=== PATIENT | female | born 1985 | race Caucasian/White ===

== ENCOUNTER 2018-04-03 11:17 | Emergency (ER) | payer MEDICAID ==
[~2018-04-03] VITALS: Ht 162.6 cm; Wt 68.0 kg
[2018-04-03 11:21] VITALS: BP 136/77
[2018-04-03 13:13] LABS: BASOPHILS % (AUTO) 0.9 % (0.0-2.0); EOSINOPHILS % (AUTO) 0.9 % (0.0-3.0); HEMATOCRIT 42.7 % (37.0-47.0); HEMOGLOBIN 14.5 G/DL (12.0-16.0); LYMPHOCYTES % (AUTO) 30.3 % (20.0-45.0); MEAN CORPUSCULAR VOLUME 88 FL (80-99); MONOCYTES % (AUTO) 11.1 % (1.0-10.0); NEUTROPHILS % (AUTO) 56.8 % (45.0-75.0); PLATELET COUNT 283 K/UL (150-450); RED BLOOD COUNT 4.86 M/UL (4.20-5.40); RED CELL DISTRIBUTION WIDTH 12.1 % (11.6-14.8); WHITE BLOOD COUNT 7.4 K/UL (4.8-10.8)
[2018-04-03 13:34] LABS: ANION GAP 10 mmol/L (5-15); BLOOD UREA NITROGEN 11 mg/dL (7-18); CARBON DIOXIDE 27 MMOL/L (21-32); CHLORIDE 103 MMOL/L (98-107); CREATININE 0.8 MG/DL (0.55-1.30); POTASSIUM 3.3 MMOL/L (3.5-5.1); SODIUM 140 MMOL/L (136-145)
[2018-04-03 13:39] LABS: ALANINE AMINOTRANSFERASE 68 U/L (12-78); ALBUMIN 3.8 G/DL (3.4-5.0); ALBUMIN/GLOBULIN RATIO 1.1 (1.0-2.7); ALKALINE PHOSPHATASE 109 U/L (46-116); ASPARTATE AMINO TRANSFERASE 38 U/L (15-37); BILIRUBIN,TOTAL 0.6 MG/DL (0.2-1.0)
--- NOTE | 2018-04-03 14:20 | Emergency Room Report ---
History of Present Illness General Chief Complaint: General Complaint Source: Patient Present Illness HPI This patient is brought in by EMS. The patient was acting bizarrely outside of a [place] stadium. [place] [employer] was called to have her removed and she continued to act bizarrely and nonsensical with the [place] police. She is not in custody but they were concerned about her behavior. The patient herself has no specific complaints. She has a history of methamphetamine abuse. Allergies: Coded Allergies: No Known Allergies (Unverified , 04/03/18) Patient History Past Medical History: see triage record, unable to obtain Social History: Reports: drug use Last Menstrual Period: Now Reviewed Nursing Documentation: PMH: Agreed; PSxH: Agreed Nursing Documentation-PMH Past Medical History: No History, Except For Review of Systems All Other Systems: negative except mentioned in HPI Physical Exam Vital Signs Date Time Temp Pulse Resp B/P (MAP) Pulse Ox O2 Delivery O2 Flow Rate FiO2 04/03/18 11:05 65 18 136/77 97 Room Air Sp02 EP Interpretation: reviewed, normal General Appearance: no apparent distress, alert, GCS 15, non-toxic Head: normocephalic, atraumatic Eyes: bilateral eye normal inspection, bilateral eye PERRL ENT: hearing grossly normal, normal pharynx, no angioedema, normal voice Neck: full range of motion, supple/symm/no masses Respiratory: chest non-tender, lungs clear, normal breath sounds, no respiratory distress, no retraction, no accessory muscle use, speaking full sentences Cardiovascular #1: regular rate, rhythm, no edema Gastrointestinal: normal bowel sounds, non tender, soft, non-distended, no guarding, no rebound Rectal: deferred Musculoskeletal: back normal, normal range of motion, non-tender Neurologic: alert, responsive, motor strength/tone normal, sensory intact, grossly normal Psychiatric: no suicidal/homicidal ideation, other - Flight of speech, unable to articulate sensical sentence. Skin: normal color, no rash, warm/dry, well hydrated Medical Decision Making Diagnostic Impression: Primary Impression: Drug intoxication with delirium ER Course This patient has an examination consistent with drug intoxication. Likely this patient used methamphetamine. The patient's laboratory workup was noncontributory. There is no evidence of trauma or injury on physical examination of this patient. The patient was allowed to sober up in the emergency department and was able to ambulate and articulate desire to go home. The patient was clinically sober at the time of discharge. No acute emergency medical condition is identified. The patient was educated on the dangers of drug intoxication and abuse. The patient was given a list of the local rehabilitation clinics. Laboratory Tests Test 04/03/18 12:04 White Blood Count 7.4 K/UL (4.8-10.8) Red Blood Count 4.86 M/UL (4.20-5.40) Hemoglobin 14.5 G/DL (12.0-16.0) Hematocrit 42.7 % (37.0-47.0) Mean Corpuscular Volume 88 FL (80-99) Mean Corpuscular Hemoglobin 29.8 PG (27.0-31.0) Mean Corpuscular Hemoglobin Concent 33.9 G/DL (32.0-36.0) Red Cell Distribution Width 12.1 % (11.6-14.8) Platelet Count 283 K/UL (150-450) Mean Platelet Volume 6.2 FL (6.5-10.1) L Neutrophils (%) (Auto) 56.8 % (45.0-75.0) Lymphocytes (%) (Auto) 30.3 % (20.0-45.0) Monocytes (%) (Auto) 11.1 % (1.0-10.0) H Eosinophils (%) (Auto) 0.9 % (0.0-3.0) Basophils (%) (Auto) 0.9 % (0.0-2.0) Sodium Level 140 MMOL/L (136-145) Potassium Level 3.3 MMOL/L (3.5-5.1) L Chloride Level 103 MMOL/L (98-107) Carbon Dioxide Level 27 MMOL/L (21-32) Anion Gap 10 mmol/L (5-15) Blood Urea Nitrogen 11 mg/dL (7-18) Creatinine 0.8 MG/DL (0.55-1.30) Estimate Glomerular Filtration Rate > 60 mL/min (>60) Glucose Level 82 MG/DL (74-106) Calcium Level 9.0 MG/DL (8.5-10.1) Total Bilirubin 0.6 MG/DL (0.2-1.0) Aspartate Amino Transferase (AST) 38 U/L (15-37) H Alanine Aminotransferase (ALT) 68 U/L (12-78) Alkaline Phosphatase 109 U/L (46-116) Total Protein 7.3 G/DL (6.4-8.2) Albumin 3.8 G/DL (3.4-5.0) Globulin 3.5 g/dL Albumin/Globulin Ratio 1.1 (1.0-2.7) Thyroid Stimulating Hormone (TSH) 0.619 uiU/mL (0.358-3.740) Serum Alcohol < 3 mg/dL Last Vital Signs Date Time Temp Pulse Resp B/P (MAP) Pulse Ox O2 Delivery O2 Flow Rate FiO2 04/03/18 11:21 18 136/77 97 Room Air 04/03/18 11:05 65 Status: improved Disposition: HOME, SELF-CARE Condition: Improved Referrals: NOT CHOSEN IPA/,REFERRING (PCP) Yamile Clark DO Apr 03, 2018 14:20
[2018-04-03 15:30] VITALS: BP 130/75
[2018-04-03 19:04] VITALS: BP 92/56
[2018-04-03 20:45] VITALS: BP 132/76
[2018-04-03 20:46] VITALS: BP 132/72
== END 2018-04-03 20:47 | disposition home or self-care (01) ==
LOC: EDBD 11:17 → EMR 11:46
DX: F15.121 Other stimulant abuse with intoxication delirium (principal)
CPT/HCPCS: 36415; 80053; 80307; 80329; 81025; 84443; 85025; 99283